=== PATIENT | male | born 1965 | race African-American/Black ===

== ENCOUNTER 2024-10-13 17:02 | Emergency (ER) | payer OTHER ==
--- OUTSIDE RECORDS SUMMARY | 2024-10-13 17:05 | XMS REPORT | Clinical Summary ---
Author Name Unknown Organization [facility] Address [address] [place] [address] Care Team Providers Care Charge Weigher Name Role Phone BillyDyan Unavailable [phone] Christoph Uribe MD Primary Care Provider [phone] Allergies No known active allergies Medications * This document contains information received from the source organization and may not represent a complete record from that organization. omeprazole (PriLOSEC) 20 mg capsule Take 40 mg by mouth 2 (two) times a day before meals. Active amLODIPine (NORVASC) 10 mg tablet Take 10 mg by mouth daily. Active aspirin 81 mg EC tablet Take 81 mg by mouth daily. Active cloNIDine HCl (CATAPRES) 0.1 mg tablet Take 0.1 mg by mouth twice daily. Active metoprolol succinate (TOPROL XL) 50 mg 24 hr tablet Take 50 mg by mouth twice daily. Active lisinopril (PRINIVIL,ZESTR IL) 20 mg tablet Take 20 mg by mouth every morning. Active acyclovir (ZOVIRAX) 400 mg tablet Take 400 mg by mouth daily. Active spironolactone (ALDACTONE) 25 mg tablet Take 25 mg by mouth daily. Active docusate sodium (COLACE) 100 mg capsule Take 100 mg by mouth daily. Active HYDROcodone-florian taminophen (NORCO) 5 mg-325 mg per tablet Take 1 tablet by mouth every 8 (eight) hours as needed for moderate pain. Active dexamethasone (DECADRON) 4 mg tabletIndicatio ns:Justin e5 tablets on special day Take 4 mg by mouth. Active lenalidomide (REVLIMID) capsule 10 mg Take 10 mg by mouth daily. 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 Gender Identity Not on file Sexual Orientation Not on file 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 Not on file Not on file Obstetrics History Plan of Treatment Health Maintenance Due Date Last Done Comments Pneumococcal Vaccine: 50+ Ye ars (1 of 1 - PCV) 2017 COVID-19 Vaccine ( - 2023-2 5 season) 2024 Influenza Vaccine (#1) 2024 Pneumococcal Vaccine Aged Out No long er eligible based on patient's age to complete this topic Insurance [facility] [place] [id number] [facility] [place] [id number] Care Teams Charge Weigher Relationship Specialty Start Date End Date Dyan Cervantes PCP - External Referring Hematology and Oncology 07/05/17 Christoph Uribe MD [address] [place] [address] [email or web address] PCP - General Stem Cell Transplant 07/13/17
[2024-10-13] MEDS ORDERED: LIDOCAINE 4% PATCH ONE (17:38)
[2024-10-13] MEDS ORDERED: methocarbamoL 500 MG TAB ONE (17:38)
[2024-10-13 17:47] LABS: Absolute Eosinophils 0.1 K/uL (0-0.5); Absolute Lymphocytes (CBC) 1.3 K/uL (0.7-4.9); Absolute Monocytes 0.6 K/uL (0.1-1.3); Absolute Neutrophil 4.2 K/uL (1.8-8.0); Basophils % 0.3 % (0-1.3); Eosinophils % 2.2 % (0-4.4); Hematocrit 42.5 % (39.6-49.0); Hemoglobin 14.5 g/dL (13.6-17.9); Lymphocytes % 20.8 % (15.3-44.8); MCH 28.5 pg (27.0-35.0); MCHC 34.2 g/dL (32.0-36.0); MCV 83.4 fL (80-100); MPV 8.2 fL (7.6-11.3); Monocytes % 10.3 % (3.3-12.3); Neutrophils % 66.4 % (41.7-73.7); Platelets 270 thou/uL (152-406); Red Cell Distribution Width 14.1 % (12.1-15.2)
[2024-10-13 18:01] LABS: Anion Gap 7.7 mEq/L (5.0-15.0); Potassium 4.7 mEq/L (3.5-5.1)
--- NOTE | 2024-10-13 18:53 | RAD REPORT ---
EXAM: Chest Single View HISTORY: 59 years Male L rib pain/injury COMPARISON: None. FINDINGS: LUNGS/PLEURA: The lungs are clear. No pleural effusions or pneumothorax. No pulmonary edema. CARDIAC/MEDIASTINUM: The cardiac silhouette is within normal limits. UPPER ABDOMEN: No significant abnormality. BONES: No acute abnormality. LINES/TUBES/OTHER: N/A IMPRESSION: No evidence of acute cardiopulmonary disease.
--- NOTE | 2024-10-13 18:53 | RAD REPORT ---
EXAM:Ribs Left HISTORY: L chest wall inj COMPARISON: None IMPRESSION: No displaced left-sided rib fractures. No pneumothorax. The left lung is clear.
--- NOTE | 2024-10-13 18:55 | EDPHYS ---
Physician Documentation [facility] Name: Killian Turner Age: 59 yrs Sex: Male : 1965 Arrival Date: 10/13/2024 Time: 17:02 Bed 16 Private MD: ED Physician Abhishek Lisa HPI: 10/13 17:20 This 59 yrs old Black Male presents to ER via Unassigned with complaints of Flank Pain. ec2 17:20 Patient arrives today for left rib pain. Patient reports he is experiencing left rib ec2 pain for the past 3 months. Patient reports no falls injuries or trauma. Denies any difficulty breathing, denies any abdominal pain, denies nausea or vomiting. Also expressed concern regarding kidney disease as he has a history of CKD. Historical: - Allergies: 17:31 No Known Allergies; cm10 - PMHx: 17:31 Hypertensive disorder; Bone Cancer; cm10 - Immunization history:: Adult Immunizations up to date. - Infectious Disease History:: Denies. - Social history:: Smoking status: Patient denies any tobacco usage or history of. Patient/guardian denies using alcohol, street drugs. ROS: 17:21 Constitutional: as per hpi ec2 Exam: 17:21 Constitutional: GEN: NAD Head: atraumatic Eyes: EOMI Ears: External ears are ec2 normal. CV: regular rate LUNGS: no respiratory distress, present lung sounds bilaterally ABD: non-distended SKIN: no evidence of rashes MSK: no evidence of trauma, left anterior chest wall TTP without deformities or crepitus appreciated. Vital Signs: 17:30 BP 139 / 90; Pulse 87; Resp 15; Temp 98.4(O); Pulse Ox 100% on R/A; Weight 91.63 kg; cm10 Height 5 ft. 9 in. ; Pain 7/10; 19:17 BP 135 / 82; Pulse 85; Resp 16; Pulse Ox 99% ; cm10 17:30 Body Mass Index 29.83 (91.63 kg, 175.26 cm) cm10 17:30 Pain Scale: Adult cm10 MDM: 17:08 Medical Screening Exam initiated kb 17:21 Data reviewed: vital signs, nurses notes. ED course: Patient arrives today for left ec2 lateral reproducible TTP without deformities or crepitus appreciated with a reassuring cardiopulmonary examination. Will obtain chest wall pain. Emanation reveals lab work given the patient's concern for kidney disease, obtain chest x-ray as well as rib series. DDx includes contusion, fracture, doubt pneumothorax.. 18:54 ED course: Radiographs negative for acute traumatic pathology. Will discharge home have ec2 patient follow-up PCP. Suspect possible contusion, possible sprain. Return precautions given.. 10/13 17:18 Order name: CBC with Diff; Complete Time: 18:05 ec2 10/13 17:18 Order name: BMP; Complete Time: 18:05 ec2 10/13 17:18 Order name: CXR XRAY; Complete Time: 18:53 ec2 10/13 17:18 Order name: Ribs Left XRAY; Complete Time: 18:53 ec2 10/13 17:18 Order name: IV; Complete Time: 17:44 ec2 Administered Medications: 17:44 Drug: Methocarbamol PO 500 mg PO once Route: PO; cm10 19:17 Follow up: Response: No adverse reaction cm10 17:44 Drug: Lidoderm Topical Patch 5 % (700 mg/patch) 1 patches Topical once; leave on for 12 cm10 hours; cover most painful area; may cut into smaller pieces Route: Topical; Site: affected area; Disposition Summary: 10/13/24 18:54 Discharge Ordered Notes: Location: Home ec2 Condition: Stable ec2 Diagnosis - Sprain of ribs ec2 Followup: ec2 - With: Private Physician - When: - Reason: Re-evaluation by your physician Discharge Instructions: - Discharge Summary Sheet ec2 - Rib Contusion ec2 Forms: - Medication Reconciliation Form ec2 - Antibiotic Education ec2 - Prescription Opioid Use ec2 - Patient Portal Instructions ec2 - Leadership Thank You Letter ec2 Prescriptions: - methocarbamol 500 mg Oral tablet - take 1 tablet ORAL route 4 times per day; 15 tablet; Refills: 0, Product ec2 Selection Permitted Signatures: Dispatcher [employer] Bety Valadez FNP-C FNP-Ckb Martinez, Clarissa, RN RN cm10 Abhishek Lisa MD MD ec2 Corrections: (The following items were deleted from the chart) 17:19 17:19 CBC+H.LAB.BRZ ordered. EDMS EDMS 17:19 17:19 BASIC METABOLIC PANEL+C.LAB.BRZ ordered. EDMS EDMS
--- NOTE | 2024-10-13 18:55 | ER ---
Nurse's Notes [facility] Name: Killian Turner Age: 59 yrs Sex: Male : 1965 Arrival Date: 10/13/2024 Time: 17:02 Bed 16 Private MD: Diagnosis: Sprain of ribs Presentation: 10/13 17:30 Chief complaint: Patient states: Left sided rib pain onset this morning. Coronavirus cm10 screen: Client denies travel out of the [place] in the last 14 days. Ebola Screen: Patient denies travel to an Ebola-affected area in the 21 days before illness onset. Initial Sepsis Screen: Does the patient meet any 2 criteria? No. Patient's initial sepsis screen is negative. Does the patient have a suspected source of infection? No. Patient's initial sepsis screen is negative. Risk Assessment: Do you want to hurt yourself or someone else? Patient reports no desire to harm self or others. Onset of symptoms was October 13, 2024. 17:30 Method Of Arrival: Ambulatory cm10 17:30 Acuity: ELLIOT 3 cm10 Triage Assessment: 17:32 General: Appears in no apparent distress. uncomfortable, Behavior is calm, cooperative. cm10 Pain: Complains of pain in left flank Pain currently is 7 out of 10 on a pain scale. Neuro: No deficits noted. Level of Consciousness is awake, alert, obeys commands, Oriented to person, place, time, situation, Appropriate for age. Respiratory: No deficits noted. Airway is patent Respiratory effort is even, unlabored, Respiratory pattern is regular, symmetrical. Musculoskeletal: Reports pain in left flank. Historical: - Allergies: 17:31 No Known Allergies; cm10 - PMHx: 17:31 Hypertensive disorder; Bone Cancer; cm10 - Immunization history:: Adult Immunizations up to date. - Infectious Disease History:: Denies. - Social history:: Smoking status: Patient denies any tobacco usage or history of. Patient/guardian denies using alcohol, street drugs. Screenin:[facility] ED Fall Risk Assessment (Adult) History of falling in the last 3 months, cm10 including since admission No falls in past 3 months (0 pts) Confusion or Disorientation No (0 pts) Intoxicated or Sedated No (0 pts) Impaired Gait No (0 pts) Mobility Assist Device Used No (0 pt) Altered Elimination No (0 pt) Score/Fall Risk Level 0 - 2 = Low Risk Oriented to surroundings, Maintained a safe environment, Hourly rounding (assess needs \T\ fall precautionary measures) done. Abuse screen: Denies threats or abuse. Denies injuries from another. Nutritional screening: No deficits noted. Tuberculosis screening: No symptoms or risk factors identified. Assessment: 19:17 Reassessment: Patient appears in no apparent distress at this time. Patient and/or cm10 family updated on plan of care and expected duration. Pain level reassessed. Patient is alert, oriented x 3, equal unlabored respirations, skin warm/dry/pink. Patient states feeling better. Patient states symptoms have improved. Vital Signs: 17:30 BP 139 / 90; Pulse 87; Resp 15; Temp 98.4(O); Pulse Ox 100% on R/A; Weight 91.63 kg; cm10 Height 5 ft. 9 in. ; Pain 7/10; 19:17 BP 135 / 82; Pulse 85; Resp 16; Pulse Ox 99% ; cm10 17:30 Body Mass Index 29.83 (91.63 kg, 175.26 cm) cm10 17:30 Pain Scale: Adult cm10 ED Course: 17:04 Patient arrived in ED. ts1 17:08 Bety Ledesma FNP-C is [facility]. kb 17:08 Abhishek Lisa MD is Attending Physician. kb 17:22 Kenzie Larios, PA is Primary Nurse. cm10 17:31 Triage completed. cm10 17:32 Arm band placed on right wrist. Patient placed in an exam room, on a stretcher. cm10 17:33 Patient has correct armband on for positive identification. Placed in gown. Bed in low cm10 position. Call light in reach. Side rails up X2. Provided Education on: ER process and procedures.. 17:45 BMP Sent. cm10 17:45 CBC with Diff Sent. cm10 17:45 Initial lab(s) drawn, by ED staff, sent to lab. Inserted saline lock: 20 gauge in right cm10 forearm, using aseptic technique. Blood collected. Flushed with 10 mL NS. 18:39 CXR XRAY In Process Unspecified. EDMS 18:39 Ribs Left XRAY In Process Unspecified. EDMS 19:17 No provider procedures requiring assistance completed. IV discontinued, intact, cm10 bleeding controlled, No redness/swelling at site. Pressure dressing applied. Administered Medications: 17:44 Drug: Methocarbamol PO 500 mg PO once Route: PO; cm10 19:17 Follow up: Response: No adverse reaction cm10 17:44 Drug: Lidoderm Topical Patch 5 % (700 mg/patch) 1 patches Topical once; leave on for 12 cm10 hours; cover most painful area; may cut into smaller pieces Route: Topical; Site: affected area; Medication: 19:17 VIS not applicable for this client. cm10 Outcome: 18:54 Discharge ordered by . ec2 19:17 Discharged to home ambulatory, cm10 19:17 Condition: good 19:17 Discharge instructions given to patient, Instructed on discharge instructions, follow up and referral plans. medication usage, Demonstrated understanding of instructions, follow-up care, medications, Prescriptions given X 1, 19:17 Patient left the ED. cm10 Signatures: Dispatcher [employer] Bety Valadez, ADONIS-C TOOTH CUTTER CLUTCH-Lesley Rae PAS PAS ts1 Kenzie Larios, PA RN cm10 Abhishek Lisa MD MD ec2
[2024-10-13 19:28] VITALS: TEMP 98.4
[2024-10-13 19:29] VITALS: BP 135/82; O2SAT 99
== END 2024-10-13 19:17 | disposition home or self-care (01) ==
LOC: ER 17:02
DX: S23.41XA Sprain of ribs, initial encounter (principal); Z85.830 Personal history of malignant neoplasm of bone
CPT/HCPCS: 85025; 80048; 36415; 71045; 71100; 99284; J2003

== ENCOUNTER 2024-11-22 13:43 | Emergency (ER) | payer OTHER ==
--- OUTSIDE RECORDS SUMMARY | 2024-11-22 13:47 | XMS REPORT | Clinical Summary ---
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 PCP - General Stem Cell Transplant 07/13/17
[2024-11-22] MEDS ORDERED: HYDROMORPHONE HCL 1 MG/ML INJ ONE (15:11)
[2024-11-22] MEDS ORDERED: ONDANSETRON 4 MG/2 ML VIAL ONE (15:11)
[2024-11-22] MEDS ORDERED: NA CHLORIDE 0.9% 500 ML ONE (15:12)
[2024-11-22 15:20] LABS: Absolute Monocytes 0.5 K/uL (0.1-1.3); Absolute Neutrophil 5.9 K/uL (1.8-8.0); Basophils % 0.5 % (0-1.3); Eosinophils % 0.3 % (0-4.4); Hematocrit 41.8 % (39.6-49.0); Hemoglobin 14.4 g/dL (13.6-17.9); Lymphocytes % 13.3 % (15.3-44.8); MCH 28.3 pg (27.0-35.0); MCHC 34.5 g/dL (32.0-36.0); MCV 81.9 fL (80-100); MPV 8.1 fL (7.6-11.3); Monocytes % 7.2 % (3.3-12.3); Neutrophils % 78.7 % (41.7-73.7); Nucleated Red Blood Cells % 0.1 % (0-0); Platelets 312 thou/uL (152-406); Red Cell Distribution Width 14.2 % (12.1-15.2)
[2024-11-22 15:36] LABS: Albumin 3.8 g/dL (3.4-5.0); Albumin/Globulin Ratio 0.8 (1.1-1.8); Bilirubin Total 0.7 mg/dL (0.2-1.0); Protein, Total 8.8 g/dL (6.4-8.2)
[2024-11-22 15:39] LABS: Specific Gravity 1.012 (1.005-1.030); Urine Bilirubin NEGATIVE (Negative); Urine Blood Negative (Negative); Urine Clarity Clear (Clear); Urine Color Colorless (Yellow); Urine Glucose NEGATIVE (Negative); Urine Ketones 1+ (Negative); Urine Microscopic Reflex YN NO UMIC; Urine Nitrite NEGATIVE (Negative); Urine Protein NEGATIVE (Negative); Urine Urobilinogen Normal (Normal)
[2024-11-22] MEDS ORDERED: MORPHINE 4 MG/ML SYR ONE ×3 (16:36→23:02)
--- NOTE | 2024-11-22 18:14 | RAD REPORT ---
EXAMINATION: MRI LUMBAR SPINE WITH & WITHOUT CONTRAST CLINICAL INDICATION: Male, 59 years old. Leg weakness L>R TECHNIQUE: Multiplanar multisequence MR images were obtained of the lumbar spine before and after int ravenous administration of 14 mL MultiHance. Unless otherwise specified, incidental findings do not require dedicated imaging follow-up. COMPARISON: PET/CT of the same day. Skeletal survey 01/26/2022. FINDINGS: For purposes of this dictation, it is assumed that there are 5 non rib-bearing lumbar type vertebrae, and the most caudal fully segmented lumbar vertebra is labeled L5. ALIGNMENT: Grade 1 anterolisthesis of L4 over L5, measuring 1.3 cm, with a lateral pars interarticula ris defects. Alignment appears stable. BONE: Moderate superior endplate compression deformity at L4, and mild superior endplate compression deformities at T12-L3, appear stable compared to the more remote skeletal survey. No marrow edematous changes or suspicious signal abnormality. Patchy T1 marrow signal throughout, may relate to blood dyscrasia. Endplate and facet remodeling contributes to the findings below. CORD: No abnormal signal in the cord. The conus medullaris terminates at a normal level. The nerve ro ots of the cauda equina appear normal. SOFT TISSUE: The included paraspinal soft tissues and retroperitoneal structures are grossly normal. T2 hyperintense lesions of the right kidney suggestive of cysts, not well characterized No abnormal masses or enhancement. EVALUATION OF THE INDIVIDUAL LEVELS: L1-2: Mild broad-based posterior disc bulge, contributing to mild bilateral foraminal stenosis inferi tali. No central canal stenosis. L2-3: Mild posterior disc bulge contributing to mild bilateral foraminal stenosis inferiorly. No cent ral canal stenosis.. L3-4: Broad-based posterior disc bulge without significant central canal stenosis. Bilateral mild to moderate neural foraminal narrowing. L4-5: Facet arthropathy with broad-based posterior disc extrusion, and uncovering of the superior dis c margin. In combination with prominent epidural lipomatosis opposite this level, this contributes to moderate effacement of the thecal sac. Bilateral severe neural foraminal narrowing worse on the le ft. L5-S1: Mild broad-based posterior disc bulge. No central canal or foraminal stenosis. IMPRESSION: Grade 1 spondylolisthesis at L4-5, appears stable, with disc extrusion and epidural lipomatosis at th at level, contributing to moderate central canal effacement. Bilateral severe neural foraminal narrowing at that level worse on the left. Other milder spondylotic changes at other levels, with up to mild to moderate bilateral neural forami nal narrowing at L3-4. Chronic appearing lumbar compression deformities most notably at L4.
--- NOTE | 2024-11-22 19:20 | ER ---
Nurse's Notes [facility] Name: Killian Turner Age: 59 yrs Sex: Male : 1965 Arrival Date: 11/22/2024 Time: 13:43 Bed Treatment Private MD: Diagnosis: Lytic lesions T8/9 with canal severe canal effacement;T10 compression fracture;Low back pain Presentation: 11/22 14:06 Chief complaint: Patient states: mid spine pain and RLQ pain since october 13. iw Coronavirus screen: At this time, the client does not indicate any symptoms associated with coronavirus-19. Ebola Screen: No symptoms or risks identified at this time. Risk Assessment: Do you want to hurt yourself or someone else? Patient reports no desire to harm self or others. Onset of symptoms was October 13, 2024. 14:06 Method Of Arrival: Wheelchair iw 14:06 Acuity: ELLIOT 3 iw 15:00 Initial Sepsis Screen: Does the patient meet any 2 criteria? No. Patient's initial aa5 sepsis screen is negative. Does the patient have a suspected source of infection? No. Patient's initial sepsis screen is negative. Historical: - Allergies: 14:10 No Known Allergies; iw - Home Meds: 15:57 metoprolol, lisinopril, tramadol [Active]; aa5 - PMHx: 14:07 bone cancer; Hypertensive disorder; iw 15:57 Multiple Myeloma; aa5 - Immunization history:: Adult Immunizations up to date. - Infectious Disease History:: Denies. - Social history:: Smoking status: Patient denies any tobacco usage or history of. Screenin:00 [facility] ED Fall Risk Assessment (Adult) History of falling in the last 3 months, aa5 including since admission No falls in past 3 months (0 pts) Confusion or Disorientation No (0 pts) Intoxicated or Sedated No (0 pts) Impaired Gait No (0 pts) Mobility Assist Device Used No (0 pt) Altered Elimination No (0 pt) Score/Fall Risk Level 0 - 2 = Low Risk Oriented to surroundings, Maintained a safe environment, Educated pt \\T\\ family on fall prevention, incl call for assistance when getting out of bed, Assessed \\T\\ reinforced patient's understanding of fall precautions. Abuse screen: Denies threats or abuse. Nutritional screening: No deficits noted. Tuberculosis screening: No symptoms or risk factors identified. Assessment: 15:00 General: Appears uncomfortable, Behavior is calm, cooperative. Pain: Complains of pain aa5 in thoracic area, lumbar area, and lower abdomen Pain currently is 10 out of 10 on a pain scale. Quality of pain is described as sharp, Pain began "since August but it got worse October 13" Is continuous, Noted to be resistant to movement. Neuro: Level of Consciousness is awake, alert, obeys commands, Oriented to person, place, time, situation. Cardiovascular: Patient's skin is warm and dry. Respiratory: Airway is patent Respiratory effort is even, unlabored, Respiratory pattern is regular, symmetrical. GI: Abdomen is round non-distended, Bowel sounds present X 4 quads. Abd is soft X 4 quads Reports lower abdominal pain, Patient currently denies nausea, vomiting. : No signs and/or symptoms were reported regarding the genitourinary system. : No signs and/or symptoms were reported regarding the genitourinary system. EENT: No signs and/or symptoms were reported regarding the EENT system. Derm: Skin is dry, Skin is normal, Skin temperature is warm. Musculoskeletal: Reports pain in back. 15:30 Pain: Pain currently is 8 out of 10 on a pain scale. Neuro: Level of Consciousness is aa5 awake, alert, obeys commands, Oriented to person, place, time, situation. Respiratory: Airway is patent Respiratory effort is even, unlabored, Respiratory pattern is regular, symmetrical. Derm: Skin is dry, Skin is normal, Skin temperature is warm. 16:43 Reassessment: Pt c/o increased back pain upon transferring from bed to wheelchair, MD [email or web address] was notified. . Neuro: Level of Consciousness is awake, alert, obeys commands, Oriented to person, place, time, situation. Respiratory: Airway is patent Respiratory effort is even, unlabored, Respiratory pattern is regular, symmetrical. Derm: Skin is dry, Skin is normal, Skin temperature is warm. 16:44 Reassessment: Pt to MRI . aa5 18:50 Reassessment: Pt requesting pain medication before going to CT scan, was notified. . aa5 Neuro: Level of Consciousness is awake, alert, obeys commands, Oriented to person, place, time, situation. Respiratory: Airway is patent Respiratory effort is even, unlabored, Respiratory pattern is regular, symmetrical. Derm: Skin is dry, Skin is normal, Skin temperature is warm. 19:20 General: Appears in no apparent distress. uncomfortable, Behavior is calm, cooperative. al5 Pain: Complains of pain in lumbar area and thoracic area Pain currently is 7 out of 10 on a pain scale. Neuro: Level of Consciousness is awake, alert, obeys commands, Oriented to person, place, time, situation. Cardiovascular: Capillary refill < 3 seconds Patient's skin is warm and dry. Respiratory: Airway is patent Respiratory effort is even, unlabored, Respiratory pattern is regular, symmetrical. GI: No signs and/or symptoms were reported involving the gastrointestinal system. : No signs and/or symptoms were reported regarding the genitourinary system. EENT: No signs and/or symptoms were reported regarding the EENT system. Derm: Skin is intact, Skin is pink, warm \\T\\ dry. normal. Musculoskeletal: Reports pain in lumbar area and thoracic area. 22:05 Reassessment: Patient appears in no apparent distress at this time. No changes from al5 previously documented assessment. Patient and/or family updated on plan of care and expected duration. Pain level reassessed. Patient is alert, oriented x 3, equal unlabored respirations, skin warm/dry/pink. 22:33 Reassessment: gave report to PA strong at [facility]. al5 Vital Signs: 14:10 BP 134 / 94; Pulse 82; Resp 16; Temp 98.2; Pulse Ox 100% on R/A; iw 15:30 BP 132 / 79; Pulse 80; Resp 16 S; Pulse Ox 98% on R/A; aa5 18:30 BP 135 / 90; Pulse 86; Resp 16 S; Pulse Ox 98% on R/A; aa5 19:20 BP 135 / 85; Pulse 76; Resp 18; Pulse Ox 96% ; al5 22:05 BP 125 / 77; Pulse 87; Resp 18; Pulse Ox 98% ; al5 23:05 BP 129 / 72; Pulse 88; Resp 18; Pulse Ox 100% ; al5 ED Course: 13:45 Patient arrived in ED. mr 13:57 Rafa Molina DO is Attending Physician. ms3 14:07 Triage completed. iw 14:54 Char Spencer RN is Primary Nurse. aa5 15:00 Patient has correct armband on for positive identification. Bed in low position. Call aa5 light in reach. Side rails up X2. Pulse ox on. NIBP on. 15:05 Initial lab(s) drawn, by me, sent to lab. Inserted saline lock: 20 gauge in right aa5 antecubital area, using aseptic technique. Blood collected. Flushed with 10 mL NS. 17:13 Lumbar Spine Wo Con In Process Unspecified. EDMS 17:41 No provider procedures requiring assistance completed. aa5 19:04 Report given to PA Perry. aa5 19:05 Thoracic Spine W/Cont In Process Unspecified. EDMS 19:24 Initiated transfer with Haven at [facility]. rv1 20:45 Doc to Doc with Neurologist at [facility]. rv1 20:58 Provided Education on: need for transfer. al5 21:18 Doc to Doc with Hospitalist at [facility]. rv1 21:[address] Mcclelland to [facility] Rm [id number]. rv1 22:19 Awaiting nurse to nurse for transfer. [facility] nurse is busy and will call back when ready rv1 for report per Vicky WINN. 23:05 Patient transferred, IV remains in place. al5 Administered Medications: 15:20 Drug: NS 0.9% IV 500 ml IV at bolus once; to be given as a bolus over 30 minutes Route: aa5 IV; Rate: bolus; Site: right antecubital; 20:59 Follow up: Response: No adverse reaction; IV Status: Completed infusion; IV Intake: al5 500ml 15:20 Drug: HYDROmorphone IVP 1 mg IVP once Route: IVP; Site: right antecubital; aa5 15:30 Follow up: Response: No adverse reaction; Pain is decreased aa5 15:20 Drug: Ondansetron IVP 4 mg IVP once; over 2 minutes Route: IVP; Site: right antecubital;aa5 15:30 Follow up: Response: No adverse reaction aa5 16:43 Drug: morphine IVP or IV 4 mg IVP once over 4 mins Route: IVP; Infused Over: 4 mins; aa5 Site: right antecubital; 16:43 Follow up: Response: No adverse reaction aa5 20:59 Follow up: Response: No adverse reaction al5 18:51 Drug: morphine IVP or IV 4 mg IVP once over 4 mins Route: IVP; Infused Over: 4 mins; aa5 Site: right antecubital; 20:59 Follow up: Response: No adverse reaction al5 23:06 Drug: morphine IVP or IV 4 mg IVP once over 4 mins Route: IVP; Infused Over: 4 mins; al5 Site: right antecubital; 23:06 Follow up: Response: No adverse reaction; Medication Administered at Departure al5 Medication: 16:43 VIS not applicable for this client. aa5 Intake: 20:59 IV: 500ml; Total: 500ml. al5 Outcome: 19:19 ER care complete, transfer ordered by . ms3 23:05 Transferred by [facility] to [facility], [facility], al5 23:05 Condition: stable 23:05 Instructed on the need for transfer, 23:07 Patient left the ED. al5 Signatures: Dispatcher [employer] EDFatimah Bustos, Reg Reg Airam Somers, RN RN Char Arguelles RN RN aa5 Rafa Molina DO DO ms3 Ramey, Yamileth rv1 Vicky Auguste RN RN al5 Corrections: (The following items were deleted from the chart) 16:44 16:39 Reassessment: Pt to MRI . aa5 aa5 22:19 22:19 Awaiting nurse to nurse for transfer. [facility] nurse is busy and will call back when rv1 ready for report according to Vicky WINN rv1
--- NOTE | 2024-11-22 19:20 | EDPHYS ---
Physician Documentation [facility] Name: Killian Turner Age: 59 yrs Sex: Male : 1965 Arrival Date: 11/22/2024 Time: 13:43 Bed Treatment Private MD: ED Physician Rafa Molina HPI: 11/22 20:52 This 59 yrs old Black Male presents to ER via Wheelchair with complaints of Back Pain, ms3 Weakness. 20:52 59-year-old male with past medical history of multiple myeloma, hypertension presents ms3 to the emergency department for right lower quadrant abdominal pain is been ongoing for 1 month. Patient also notes back pain. Patient denies nausea, vomiting, fevers, chills. Patient states his back pain is a 10/10. He states he has had lower extremity weakness for 3 weeks.. Historical: - Allergies: 14:10 No Known Allergies; iw - Home Meds: 15:57 metoprolol, lisinopril, tramadol [Active]; aa5 - PMHx: 14:07 bone cancer; Hypertensive disorder; iw 15:57 Multiple Myeloma; aa5 - Immunization history:: Adult Immunizations up to date. - Infectious Disease History:: Denies. - Social history:: Smoking status: Patient denies any tobacco usage or history of. ROS: 20:52 Constitutional: Negative for fever, and chills. Cardiovascular: Negative for chest ms3 pain, and palpitations. Respiratory: Negative for shortness of breath, cough, wheezing, and pleuritic chest pain, Abdomen/GI: Negative for abdominal pain, nausea, vomiting, diarrhea, and constipation, 20:52 Back: Positive for Back pain, 20:52 MS/extremity: Positive for Lower extremity weakness, Exam: 20:52 Constitutional: This is a well developed, well nourished patient who is awake, alert, ms3 and in no acute distress. Cardiovascular: Regular rate and rhythm with a normal S1 and S2. No gallops, murmurs, or rubs. Normal PMI, no JVD. No pulse deficits. Respiratory: Lungs have equal breath sounds bilaterally, clear to auscultation and percussion. No rales, rhonchi or wheezes noted. No increased work of breathing, no retractions or nasal flaring. Abdomen/GI: Soft, non-tender, with normal bowel sounds. No distension or tympany. No guarding or rebound. No evidence of tenderness throughout. 20:52 Back: pain, that is severe, vertebral tenderness, is appreciated at , Vital Signs: 14:10 BP 134 / 94; Pulse 82; Resp 16; Temp 98.2; Pulse Ox 100% on R/A; iw 15:30 BP 132 / 79; Pulse 80; Resp 16 S; Pulse Ox 98% on R/A; aa5 18:30 BP 135 / 90; Pulse 86; Resp 16 S; Pulse Ox 98% on R/A; aa5 19:20 BP 135 / 85; Pulse 76; Resp 18; Pulse Ox 96% ; al5 22:05 BP 125 / 77; Pulse 87; Resp 18; Pulse Ox 98% ; al5 23:05 BP 129 / 72; Pulse 88; Resp 18; Pulse Ox 100% ; al5 MDM: 14:13 Medical Screening Exam initiated ms3 20:43 ED course: Discussed case with Dr Box at [facility] and patient can go to neuro floor. ms3 20:52 Differential diagnosis: Fracture Myeloma spinal injury, vertebral fracture. Data ms3 reviewed: vital signs, nurses notes, lab test result(s), radiologic studies, and as a result, I will Transfer patient. Management of patient was discussed with the following: Anthropology Instructor: Dr. Box at [facility]. I considered the following discharge prescriptions or medication management in the emergency department Medications were administered in the Emergency Department. See MAR. Counseling: I had a detailed discussion with the patient and/or guardian regarding the historical points, exam findings, and any diagnostic results supporting the discharge/admit diagnosis, lab results, radiology results, the need to transfer to another facility, for higher level of care. 21:33 ED course: Discussed case with Dr Ember Mcclelland and she accepts patient to [facility] floor. ms3 11/22 14:53 Order name: CBC with Diff; Complete Time: 15:43 laverne 11/22 14:53 Order name: Comprehensive Metabolic Panel; Complete Time: 15:43 laverne 11/22 14:53 Order name: Urinalysis w/ reflexes; Complete Time: 15:43 laverne 11/22 17:10 Order name: Lumbar Spine Wo Con; Complete Time: 18:18 EDMS 11/22 18:37 Order name: Thoracic Spine W/Cont; Complete Time: 20:40 EDMS Administered Medications: 15:20 Drug: NS 0.9% IV 500 ml IV at bolus once; to be given as a bolus over 30 minutes Route: aa5 IV; Rate: bolus; Site: right antecubital; 20:59 Follow up: Response: No adverse reaction; IV Status: Completed infusion; IV Intake: al5 500ml 15:20 Drug: HYDROmorphone IVP 1 mg IVP once Route: IVP; Site: right antecubital; aa5 15:30 Follow up: Response: No adverse reaction; Pain is decreased aa5 15:20 Drug: Ondansetron IVP 4 mg IVP once; over 2 minutes Route: IVP; Site: right antecubital;aa5 15:30 Follow up: Response: No adverse reaction aa5 16:43 Drug: morphine IVP or IV 4 mg IVP once over 4 mins Route: IVP; Infused Over: 4 mins; aa5 Site: right antecubital; 16:43 Follow up: Response: No adverse reaction aa5 20:59 Follow up: Response: No adverse reaction al5 18:51 Drug: morphine IVP or IV 4 mg IVP once over 4 mins Route: IVP; Infused Over: 4 mins; aa5 Site: right antecubital; 20:59 Follow up: Response: No adverse reaction al5 23:06 Drug: morphine IVP or IV 4 mg IVP once over 4 mins Route: IVP; Infused Over: 4 mins; al5 Site: right antecubital; 23:06 Follow up: Response: No adverse reaction; Medication Administered at Departure al5 Disposition Summary: 11/22/24 19:19 Transfer Ordered Notes: Transfer Location: [facility] ms3 Reason: Higher level of care ms3 Condition: Stable ms3 Problem: new ms3 Symptoms: are unchanged ms3 Accepting Physician: (11/22/24 23:07) al5 Diagnosis - Lytic lesions T8/9 with canal severe canal effacement ms3 - T10 compression fracture ms3 - Low back pain ms3 Forms: - Medication Reconciliation Form ms3 - SBAR form ms3 Signatures: Dispatcher [employer] EDMS Fabrizio Kerns MD MD cha Williams, Irene, RN RN Char Spencer RN RN aa5 Rafa Molina DO DO ms3 Vicky Auguste, RN RN al5 Corrections: (The following items were deleted from the chart) 14:53 14:53 CBC+H.LAB.BRZ ordered. EDMS EDMS 14:53 14:53 COMPREHENSIVE METABOLIC PANEL+C.LAB.BRZ ordered. EDMS EDMS 14:53 14:53 Urinalysis+U.LAB.BRZ ordered. EDMS EDMS 17:01 14:14 Spine Lumbar W/Cont ordered. EDMS EDMS 17:10 17:01 Spine Lumbar W/Wo Cont ordered. EDMS EDMS 23:07 19:19 Dr ms3 al5
--- NOTE | 2024-11-22 20:03 | RAD REPORT ---
EXAMINATION: CT THORACIC SPINE WITH CONTRAST CLINICAL INDICATION: Male, 59 years old. back pain TECHNIQUE: Axial CT images were obtained through the thoracic spine in soft tissue and bone windows f ollowing intravenous contrast administration. Coronal and Sagittal reformatted images were created from the data set. One or more of the following dose reduction techniques were used: Automated exposu re control, adjustment of the mA and/ or kV according to patient size, and/or iterative reconstruction. Unless otherwise specified, incidental findings do not require dedicated imaging foll ow-up. COMPARISON: PET/CT of the same day. FINDINGS: ALIGNMENT: The lumbar spine demonstrates normal alignment without scoliosis or spondylolisthesis. BONES: Mottled appearance with numerous small lucent lesions throughout the thoracic spine. Lytic les ion involving vertebral body T9, extending along bilateral pedicles and left superior more than inferior articular pillars, and base of the left transverse process. Resulting moderate wedge carole bernardino deformity. The lytic changes are most pronounced along the superior and posterior cortex of the vertebral body. DISCS: Intervertebral disc space heights are maintained. LEVELS: Enhancing extraosseous soft tissue components extending posteriorly at T9, markedly effacing the spinal canal, and encroaching upon the left T8-9 neural foramen, as well as the bilateral T9-10 neural foramina. Possible mild encroachment upon the inferior aspect of right T8-9 neural foramen as well. SOFT TISSUE: Asymmetric mild effacement of the left lateral paraspinous soft tissues at T9 level. IMPRESSION: Lytic lesion suggestive of a myeloma involving T9 vertebral body, with extraosseous extension posteri tali, with soft tissue completely opacifying the spinal canal, and completely encroaching upon the bilateral T9-10 and left T8-9 Neural foramina, with possible mild encroachment upon the inferior aspe ct of right T8-9 neural foramen. Other osseous remodeling throughout the thoracic spine, compatible with either myelomatous involvemen t sequelae. THIS REPORT CONTAINS FINDINGS THAT MAY BE CRITICAL TO PATIENT CARE. The findings were verbally commun icated via telephone to Rafa Molina on 11/22/2024 7:16 PM.
[2024-11-22 23:29] VITALS: TEMP 98.2
[2024-11-22 23:37] VITALS: BP 129/72; O2SAT 100
== END 2024-11-22 23:07 | disposition short-term general hospital (02) ==
LOC: ER 13:43
DX: S24.119A Complete lesion at unspecified level of thoracic spinal cord, initial encounter (principal); M48.54XA Collapsed vertebra, not elsewhere classified, thoracic region, initial encounter for fracture; R10.31 Right lower quadrant pain; Z85.79 Personal history of other malignant neoplasms of lymphoid, hematopoietic and related tissues; Z85.830 Personal history of malignant neoplasm of bone
CPT/HCPCS: 96361; 85025; 36415; 81003; 80053; 72129; 72148; 96375; 96374; 99285; Q9967; J1171; J2405; J7040

== ENCOUNTER 2025-04-30 12:03 | Emergency (ER) | payer OTHER ==
--- OUTSIDE RECORDS SUMMARY | 2025-04-30 12:06 | XMS REPORT | Clinical Summary ---
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 Not on file Not on file Obstetrics History Plan of Treatment Health Maintenance Due Date Last Done Comments Pneumococcal Vaccine: 50+ Years (1 of 1 - PCV) 017 COVID-19 Vaccine (1 - 2023- season) 2025 Influenza Vaccine (#1) 2025 Insurance [facility] SCT Care Teams Sales Administration Manager Relationship Specialty Start Date End Date Dyan Cervantes [email or web address] PCP - External Referring Hematology and Oncology 07/05/17 Christoph Uribe MD [address] [place] [address] [email or web address] PCP - General Stem Cell Transplant 07/13/17
--- NOTE | 2025-04-30 12:56 | RAD REPORT ---
EXAMINATION: Head Brain Wo Cont CLINICAL INDICATION: Male, 59 years old.AMS TECHNIQUE: Axial CT images from the skull base to the vertex without intravenous contrast. Coronal an d sagittal reformatted images were created from the data set. One or more of the following dose reduction techniques were used: Automated exposure control, adjustment of the mA and/or kV according to patient size, and/or iterative reconstruction. Unless otherwise specified, incidental findings do not require dedicated imaging follow-up. [id number]. COMPARISON: No prior exams FINDINGS: INTRACRANIAL: No acute intracranial hemorrhage. No acute large vascular territory infarct. No hydroce phalus. No mass effect or midline shift. No significant white matter disease. VASCULATURE: No visualized abnormalities in the arteries or dural venous sinuses. SCALP/SKULL: No calvarial fracture identified. No acute soft tissue abnormality. SINUSES: The visualized paranasal sinuses are mostly clear. No significant mastoid fluid. IMPRESSION: No acute intracranial abnormality.
[2025-04-30 13:22] LABS: Urine Microscopic Reflex YN NO UMIC
[2025-04-30 13:27] LABS: Absolute Lymphocytes (CBC) 0.4 K/uL (0.7-4.9); Hematocrit 34.3 % (39.6-49.0); Hemoglobin 11.7 g/dL (13.6-17.9); MCH 27.5 pg (27.0-35.0); MCHC 34.1 g/dL (32.0-36.0); MCV 80.6 fL (80-100); MPV 7.6 fL (7.6-11.3); Nucleated RBC Absolute Count 0.0 (0-0); Nucleated Red Blood Cells % 0.0 % (0-0); RBC Red Blood Cell Count 4.25 M/uL (4.33-5.43); White Blood Count 7.80 thou/uL (4.3-10.9)
[2025-04-30 13:31] LABS: PT Prothrombin Time 13.6 SECONDS (10-13.0); PTT, Activated Partial Thromb 27.3 SECONDS (27.2-37.4); Protime INR 1.21
--- NOTE | 2025-04-30 13:33 | RAD REPORT ---
EXAM: Chest Single View HISTORY: 59 years Male COUGH COMPARISON: 02/28/2025 FINDINGS: LUNGS/PLEURA: The lungs are clear. No pleural effusions or pneumothorax. No pulmonary edema. CARDIAC/MEDIASTINUM: The cardiac silhouette is within normal limits. UPPER ABDOMEN: No significant abnormality. BONES: No acute abnormality. Rods in the thoracic spine. LINES/TUBES/OTHER: N/A IMPRESSION: No evidence of acute cardiopulmonary disease.
[2025-04-30 13:38] LABS: Influenza A Ag Negative; Influenza B Ag Negative; SARS-CoV-2 Antigen Rapid Res Negative (Negative)
[2025-04-30 13:39] LABS: ALT/SGPT 26 U/L (16-61); Albumin 3.2 g/dL (3.4-5.0); Albumin/Globulin Ratio 0.8 (1.1-1.8); Alkaline Phosphatase 69 U/L (45-117); Anion Gap 12.9 mEq/L (5.0-15.0); BUN Blood Urea Nitrogen 22 mg/dL (7-18); Globulin 3.9 g/dL (2.3-3.5); Glucose Level 122 mg/dL (74-106); Potassium 3.9 mEq/L (3.5-5.1)
[2025-04-30 13:40] LABS: AST/SGOT < 10 U/L (15-37); Bilirubin Indirect, Calculated 0.1 mg/dL (0.2-0.8)
[2025-04-30 14:08] LABS: Anisocytosis 1+; Blood Morphology Comment NOTED (NOT SEEN); Microcytosis 2+; White Blood Cell Scan OK (OK)
--- NOTE | 2025-04-30 14:53 | ER ---
Nurse's Notes [facility] Name: Killian Turner Age: 59 yrs Sex: Male : 1965 Arrival Date: 04/30/2025 Time: 12:03 Bed 7 Private MD: Diagnosis: Altered mental status, unspecified Presentation: 04/30 12:18 Chief complaint: Family reports confusion x 2 days. Pt reports sinus congestion for hb last few days. Coronavirus screen: At this time, the client does not indicate any symptoms associated with coronavirus-19. Ebola Screen: No symptoms or risks identified at this time. Initial Sepsis Screen: Does the patient meet any 2 criteria? No. Patient's initial sepsis screen is negative. Does the patient have a suspected source of infection? No. Patient's initial sepsis screen is negative. Risk Assessment: Do you want to hurt yourself or someone else? Patient reports no desire to harm self or others. Onset of symptoms was April 29, 2025. 12:18 Method Of Arrival: Ambulatory hb 12:18 Acuity: ELLIOT 2 hb Historical: - Allergies: 12:19 No Known Allergies; hb - PMHx: 12:19 bone cancer; Hypertensive disorder; multiple myeloma; hb - Immunization history:: Adult Immunizations. - Infectious Disease History:: Denies. - Family history:: not pertinent. - Hospitalizations: : The patient was recently seen at [facility]. Screenin:45 [facility] ED Fall Risk Assessment (Adult) History of falling in the last 3 months, iw including since admission No falls in past 3 months (0 pts) Confusion or Disorientation No (0 pts) Intoxicated or Sedated No (0 pts) Impaired Gait Yes (1 pt) Mobility Assist Device Used Yes (1 pt) Altered Elimination No (0 pt) Score/Fall Risk Level 3 or more points = High Risk Oriented to surroundings. Abuse screen: Denies injuries from another. Nutritional screening: No deficits noted. Tuberculosis screening: No symptoms or risk factors identified. Assessment: 13:15 General: Appears in no apparent distress. Behavior is calm, cooperative. Pain: Denies iw pain. Neuro: Level of Consciousness is awake, alert, obeys commands, Oriented to person, place, time, Moves all extremities. Cardiovascular: Patient's skin is warm and dry. Respiratory: Respiratory effort is even, unlabored, Respiratory pattern is regular, symmetrical. GI: Abdomen is non-distended. Derm: Skin is intact, is healthy with good turgor. Musculoskeletal: Range of motion: intact in all extremities. 14:15 Reassessment: Patient appears in no apparent distress at this time. Patient and/or iw family updated on plan of care and expected duration. Pain level reassessed. Patient is alert, oriented x 3, equal unlabored respirations, skin warm/dry/pink. Vital Signs: 12:18 BP 124 / 80; Pulse 90; Resp 16; Temp 98.9(O); Pulse Ox 99% on R/A; Weight 65.77 kg; hb Pain 0/10; 13:48 BP 124 / 77; Pulse 72; Resp 16; Pulse Ox 100% on R/A; iw 15:28 BP 125 / 72; Pulse 61; Resp 18; Pulse Ox 100% on R/A; iw 12:18 Pain Scale: Adult hb ED Course: 12:06 Patient arrived in ED. mr 12:07 Ethan Pardo MD is Attending Physician. rn 12:10 Airam Samuel, PA is Primary Nurse. iw 12:19 Triage completed. hb 12:43 CT Head Brain wo Cont In Process Unspecified. EDMS 13:10 Initial lab(s) drawn, by me, sent to lab. Inserted saline lock: 22 gauge in right iw forearm, using aseptic technique. Blood collected. Flushed with 10 mL NS. 13:15 Antipyretic given from triage as ordered by the ER provider. iw 13:24 XRAY Chest (1 view) In Process Unspecified. EDMS 13:44 Patient has correct armband on for positive identification. Bed in low position. iw Provided Education on: lab wait time . Client placed on continuous cardiac and pulse oximetry monitoring. NIBP monitoring applied. 14:52 Orestes Vergara MD is Referral Physician. rn 15:28 No provider procedures requiring assistance completed. IV discontinued, intact, iw bleeding controlled, No redness/swelling at site. Pressure dressing applied. Administered Medications: No medications were administered Medication: 13:44 VIS not applicable for this client. iw Outcome: 14:52 Discharge ordered by . rn 15:28 Discharged to home ambulatory, with family, iw 15:28 Condition: good 15:28 Discharge instructions given to patient, Instructed on discharge instructions, follow up and referral plans. Demonstrated understanding of instructions, follow-up care, 15:34 Patient left the ED. iw Signatures: Dispatcher [employer] EDFatimah Bustos, Reg Airam Saldaña, RN RN Ethan Stahl MD MD rn Baxter, Heather, RN RN hb
--- NOTE | 2025-04-30 14:53 | EDPHYS ---
Physician Documentation [facility] Name: Killian Turner Age: 59 yrs Sex: Male : 1965 Arrival Date: 04/30/2025 Time: 12:03 Bed 7 Private MD: ED Physician Ethan Pardo HPI: 04/30 14:47 This 59 yrs old Black Male presents to ER via Ambulatory with complaints of Confusion. rn 14:47 Family reports confusion for the last week. Admitted for this confusion, worked up with rn negative workup and told could be partial seizures. Placed on Keppra. Has been doing okay and then family noticed not making sense the last 2 days. Similar to before when he was admitted. No head injury. No fever or chills. Does have some cough and congestion. No shortness of breath. No chest pain. No abdominal pain. Also has multiple myeloma and gets weekly injections.. Historical: - Allergies: 12:19 No Known Allergies; hb - PMHx: 12:19 bone cancer; Hypertensive disorder; multiple myeloma; hb - Immunization history:: Adult Immunizations. - Infectious Disease History:: Denies. - Family history:: not pertinent. - Hospitalizations: : The patient was recently seen at [facility]. ROS: 14:47 Constitutional: Negative for fever, chills, and weight loss, Eyes: Negative for injury, rn pain, redness, and discharge, ENT: Positive for congestion Cardiovascular: Negative for chest pain, palpitations, and edema, Respiratory: Positive for cough, negative for shortness of breath Abdomen/GI: Negative for abdominal pain, nausea, vomiting, diarrhea, and constipation, MS/Extremity: Negative for injury and deformity, Skin: Negative for injury, rash, and discoloration, Neuro: Negative for headache, weakness, numbness, tingling Exam: 14:47 Constitutional: This is a well developed, well nourished patient who is awake, alert, rn and in no acute distress. Head/Face: Normocephalic, atraumatic. Eyes: Pupils equal round and reactive to light, extra-ocular motions intact. Lids and lashes normal. Conjunctiva and sclera are non-icteric and not injected. Cornea within normal limits. Periorbital areas with no swelling, redness, or edema. ENT: dry MM Cardiovascular: Regular rate and rhythm. No pulse deficits. Respiratory: No increased work of breathing, no retractions or nasal flaring. Abdomen/GI: Soft, non-tender MS/ Extremity: Pulses equal, no cyanosis. Neurovascular intact. Full, normal range of motion. Equal circumference. Neuro: Awake and alert, GCS 15, oriented to person, place, time, and situation. Cranial nerves II-XII grossly intact. Motor strength 5/5 in all extremities. Sensory grossly intact. Vital Signs: 12:18 BP 124 / 80; Pulse 90; Resp 16; Temp 98.9(O); Pulse Ox 99% on R/A; Weight 65.77 kg; hb Pain 0/10; 13:48 BP 124 / 77; Pulse 72; Resp 16; Pulse Ox 100% on R/A; iw 15:28 BP 125 / 72; Pulse 61; Resp 18; Pulse Ox 100% on R/A; iw 12:18 Pain Scale: Adult hb MDM: 12:07 Medical Screening Exam initiated rn 14:47 Differential Diagnosis: CVA, electrolyte abnormality, intracranial bleed, pneumonia, rn seizure, TIA, UTI, volume depletion. Data reviewed: vital signs, nurses notes, lab test result(s), radiologic studies, CT scan, plain films, and as a result, I will discharge patient. Independent interpretation of the following test(s) in the Emergency Department X-Ray: My interpretation is Chest x-ray images negative for pneumonia per my interpretation. CT Scan: My interpretation is CT head images negative for hemorrhage per my interpretation. Care significantly affected by the following chronic conditions: Hypertension, Multiple myeloma. Counseling: I had a detailed discussion with the patient and/or guardian regarding the historical points, exam findings, and any diagnostic results supporting the discharge/admit diagnosis, lab results, radiology results, the need for outpatient follow up, to return to the emergency department if symptoms worsen or persist or if there are any questions or concerns that arise at home. Response to treatment: the patient's symptoms have markedly improved after treatment, the patient's symptoms have resolved after treatment, the patient's condition has returned to base line, the patient is now symptom free, and as a result, I will discharge patient. Special discussion: I discussed with the patient/guardian in detail that at this point there is no indication for admission to the hospital. It is understood, however, that if the symptoms persist or worsen the patient needs to return immediately for re-evaluation. Based on the history and exam findings, there is no indication for further emergent testing or inpatient evaluation. I discussed with the patient/guardian the need to see the neurologist for further evaluation of the symptoms. ED course: No acute findings in workup. Recently admitted with workup and status post initiation of Keppra. They decreased dose of Keppra. Could be side effect of Keppra versus continued breakthrough partial seizures. Patient completely back to baseline with no acute findings and workup today. No indication for emergent readmission. Will discharge with neuro follow-up. I have personally reviewed all of the results, including but not limited to blood tests and imaging deemed necessary to safely discharge this patient at this time. All results given to and printed out for patient. I personally went over all the results with the patient and answered all questions. Patient will follow-up with PCP and or specialist as discussed. Return precautions given and understood.. 04/30 12:32 Order name: CBC with Diff; Complete Time: 14:11 04/30 12:32 Order name: Basic Metabolic Panel; Complete Time: 14:11 04/30 12:32 Order name: UA Rfx Carmelo Cult if indicated; Complete Time: 13:38 rn 04/30 12:32 Order name: Protime (+inr); Complete Time: 13:38 rn 04/30 12:32 Order name: Ptt, Activated; Complete Time: 13:38 04/30 12:32 Order name: COVID-19 Ag + Flu A+B Ag; Complete Time: 14:11 04/30 12:32 Order name: LFT's; Complete Time: 14:11 rn 04/30 13:31 Order name: CBC Smear Scan; Complete Time: 14:11 EDMS 04/30 12:32 Order name: CT Head Brain wo Cont; Complete Time: 13:38 rn 04/30 12:32 Order name: XRAY Chest (1 view); Complete Time: 13:38 rn 04/30 12:32 Order name: IV Start; Complete Time: 13:17 rn Administered Medications: No medications were administered Disposition Summary: 04/30/25 14:52 Discharge Ordered Notes: Location: Home rn Problem: new rn Symptoms: have improved rn Condition: Stable rn Diagnosis - Altered mental status, unspecified rn Followup: rn - With: Orestes Vergara MD - When: As needed - Reason: Recheck today's complaints, Re-evaluation by your physician Discharge Instructions: - Discharge Summary Sheet rn - Confusion rn Forms: - Medication Reconciliation Form rn - Antibiotic sheet metal journeyman - Prescription Opioid Use rn - Patient Portal Instructions rn - Leadership Thank You Letter rn Signatures: Dispatcher [employer] Airam Scott RN RN iw Nieto, Roman, MD MD rn Baxter, Heather, RN RN Corrections: (The following items were deleted from the chart) 12:33 12:33 Head Brain Wo Cont+CT.RAD.BRZ ordered. EDMS EDMS 12:33 12:33 CBC+H.LAB.BRZ ordered. EDMS EDMS 12:33 12:33 BASIC METABOLIC PANEL+C.LAB.BRZ ordered. EDMS EDMS 12:33 12:33 UA Rfx Carmelo Cult if indicated+U.LAB.BRZ ordered. EDMS EDMS 12:33 12:33 PROTIME (+INR)+COAG.LAB.BRZ ordered. EDMS EDMS 12:33 12:33 PTT, ACTIVATED+COAG.LAB.BRZ ordered. EDMS EDMS 12:33 12:33 COVID-19 Ag + Flu A+B Ag+I.LAB.BRZ ordered. EDMS EDMS
[2025-04-30 15:47] VITALS: TEMP 98.9
[2025-04-30 15:50] VITALS: O2SAT 100
[2025-04-30 15:51] VITALS: BP 125/72
== END 2025-04-30 15:34 | disposition home or self-care (01) ==
LOC: ER 12:03
DX: R41.82 Altered mental status, unspecified (principal); I10 Essential (primary) hypertension; Z11.52 Encounter for screening for COVID-19
CPT/HCPCS: 36415; 70450; 71045; 80048; 80076; 81003; 85025; 85610; 85730; 87428; 99284